=== PATIENT | male | born 1955 | race Caucasian/White ===

== ENCOUNTER 2019-10-14 14:09 | Outpatient (CLI) | payer MEDICARE, SELFPAY ==
--- NOTE | ~2019-10-14 | CT_ITS ---
EXAMINATION: CT abdomen pelvis w con EXAM DATE: 10/14/2019 15:16 INDICATION: Abdominal cramps, pain. TECHNIQUE: Spiral CT of the abdomen and pelvis was performed following intravenous injection of 100 m L Omnipaque 350. Axial, coronal and sagittal images were reviewed. The dose-length product (DLP) fo r this examination was 299.59 mGy-cm. The exposure was tailored according to patient size (auto mA e xposure control), and iterative reconstruction (ASIR) was used as additional dose reduction technique . There is no prior study for comparison. FINDINGS: The liver, spleen, adrenal glands and pancreas are unremarkable. Gallbladder is unremarkab le. No biliary obstruction. There is mild left hydronephrosis, but no nephrolithiasis or ureteral s tone identified. The prostate is unremarkable. The bladder is unremarkable. There is no retroperit howard or pelvic lymphadenopathy. There is mild to moderate scattered arteriosclerotic disease. The re is a right-sided scrotalith. The appendix is normal. The stomach and small bowel are unremarkable. There is expected amount of c olonic stool. No free intraperitoneal gas. The heart is normal in size. There are no pericardial or pleural effusions. The lung bases are unremarkable. There is hyperinflation. There are no osteob lastic or osteolytic lesions identified. Mild thoracolumbar scoliosis. IMPRESSION: 1. Mild left hydronephrosis, but without obstructing stone identified. Reviewed, dictated and finalized at location [facility]. [facility]
[2019-10-14 15:00] LABS: Blood Urea Nitrogen 14 mg/dL (8-26); Estimated Glomerular Filt Rate > 60
[2019-10-14 15:25] LABS: Basophils Percent Auto 0.4 % (0.2-1.2); Eosinophils Absolute Auto 0.1 K/mm3 (0-0.3); Eosinophils Percent Auto 1.6 % (0-4.4); Hematocrit 44.8 % (42.0-52.0); Hemoglobin 15.1 g/dL (14.0-18.0); Immature Granulocyte Absolute 0.03 K/mm3 (0.00-0.031); Immature Granulocyte Percent A 0.4 % (0-0.5); Lymphocytes Percent Auto 34.4 % (18.3-44.2); Mean Corpuscular HGB Conc 33.7 g/dl (32-36); Mean Corpuscular Hemoglobin 30.2 pg (26-34); Mean Corpuscular Volume 89.6 fl (80-100); Mean Platelet Volume 11.9 fl (7.4-10.4); Monocytes Absolute Auto 0.8 K/mm3 (0.1-0.6); Neutrophils Absolute Auto 3.6 K/mm3 (1.3-6.7); Neutrophils Percent Auto 52.2 % (45.5-73.1); Platelet Count Result 182 k/mm3 (150-375)
[2019-10-14 15:37] LABS: Alanine Aminotransferase 26 U/L (4-50); Albumin Level 4.2 g/dL (3.5-5.1); Alkaline Phosphatase 41 U/L (38-126); Aspartate Amino Transferase 19 U/L (17-59); Bilirubin,Total 1.2 mg/dL (0.2-1.3); Blood Urea Nitrogen 13 mg/dL (9-20); Calcium 9.4 mg/dL (8.4-10.2); Carbon Dioxide 30 mmol/L (22-30); Chloride 93 mmol/L (98-107); Estimated Glomerular Filt Rate > 60; Glucose 94 mg/dL (75-110); Sodium 134 mmol/L (137-145)
== END 2019-10-14 14:10 | disposition home or self-care (01) ==
LOC: ANHIMG 14:22
PROVIDERS: PCP Family Medicine; Visit Provider Nurse Practitioner Family
DX: R10.9 Unspecified abdominal pain (principal); N13.30 Unspecified hydronephrosis
CPT/HCPCS: 36415; 74177; 80053; 85025; Q9967

== ENCOUNTER 2019-11-07 10:46 | Outpatient (CLI) | payer MEDICARE, SELFPAY ==
--- NOTE | 2019-11-07 10:51 | ECG_ITS ---
Measurements Intervals [place] Rate: 52 P: 66 SD: 171 QRS: 6 QRSD: 111 T: 35 QT: 411 QTc: 383 Interpretive Statements SINUS BRADYCARDIA INTRAVENTRICULAR CONDUCTION DELAY BORDERLINE R WAVE PROGRESSION, ANTERIOR LEADS PEAKED T WAVES- CONSIDER HYPERKALEMIA OR ISCHEMIA BASELINE ARTIFACT- I, II, III, AVR, AVL, AVF ABNORMAL ECG Electronically Signed On 11-07-2019 11:20:48 CDT by Flavio Isabel D.O.
== END 2019-11-07 10:47 | disposition home or self-care (01) ==
PROVIDERS: PCP Family Medicine; Visit Provider Urology
DX: I10 Essential (primary) hypertension (principal); I45.9 Conduction disorder, unspecified
CPT/HCPCS: 93005

== ENCOUNTER 2019-11-10 01:34 | Day surgery (SDC) | payer MEDICARE, SELFPAY ==
[2019-11-04 09:30] VITALS: BMI 19.8
[2019-11-10] VITALS (8 sets, daily range): BP systolic 118–164; BP diastolic 66–84; PULSE 51–82; RESP 10–20; TEMP 36.7–37.5; O2SAT 99–100
--- NOTE | ~2019-11-10 | XR_ITS ---
EXAMINATION: XR retrograde pyelogram LT DATE: 11/10/2019 18:10 CDT INDICATION: Left hydronephrosis TECHNIQUE: 41 fluoroscopic images from a left retrograde pyelogram are submitted for review. 40 secon ds of fluoroscopy time. FINDINGS: There are small filling defect proximal aspect of the left ureter which is not persistent, likely iatrogenic gas. There is normal course and caliber of the left ureter. The left renal calyces are normally cupped. IMPRESSION: 1. Unremarkable left retrograde pyelogram.. Correlate with real time procedural findings for details . Reviewed, dictated and finalized at location A. IMPRESSION: 1. Unremarkable left retrograde pyelogram.. Correlate with real time procedura l findings for details.
--- NOTE | 2019-11-10 06:45 | WPDHPUPDATE1 ---
History and Physical Update Update Date/Time: 11/10/19 06:45 History and Physical has been reviewed, including an updated exam of the patient. There are NO changes in the patient's condition. Risks, benefits, and alternatives have been discussed and questions answered. Patient agrees to proceed with procedure.
[2019-11-10] MEDS: LACTATED RINGERS 1,000 ML 30 ML IV CONT ×2 (12:45→14:53)
--- NOTE | 2019-11-10 13:24 | WPDANESEPPF ---
Anes - Initial Pre Proc Eval Procedure: Operation Date: 11/10/19 14:15 Proposed Procedures p Right Epididymectomy - Dago Justice MD s Cystoscopy, Left Retrograde Pyelogram, Left Ureteroscopy - Dago Justice MD Date/Time: 11/10/19 13:24 Surgeon: Dago Justice MD Pre Op Diagnosis: right epididimitis, left hydronephrosis Patient Data Age: 64 Gender: M Height: 6 ft 1 in Weight: 70 kg Last Vital Signs Temp 37.5 C 11/10/19 12:54 Pulse 51 L 11/10/19 12:54 Resp 20 11/10/19 12:54 BP 118/68 11/10/19 12:54 Pulse Ox 99 11/10/19 12:54 Allergies Allergy/AdvReac Type Severity Reaction Status Date / Time nut - unspecified Allergy Severe Anaphylactic Verified 11/10/19 12:56 Shock Penicillins Allergy Unknown Rash Verified 11/10/19 12:56 Home Medications Medication Instructions Recorded Confirmed Type oxycodone 5 mg tablet 5 mg PO Q8H PRN #90 tablet 09/30/19 11/10/19 Rx acetaminophen-codeine 0.5 tablet PO Q4H PRN 11/04/19 11/10/19 History [Tylenol-Codeine #4] atenolol 100 mg PO HS 11/04/19 11/10/19 History cholecalciferol (vitamin D3) 125 mcg PO DAILY 11/04/19 11/10/19 History [Dialyvite Vitamin D] milk thistle 150 mg PO DAILY 11/04/19 11/10/19 History omega 0-ebe-bsc-fish oil [Fish Oil] 1 cap PO DAILY 11/04/19 11/10/19 History tamsulosin [Flomax] 0.4 mg PO HS 11/04/19 11/10/19 History epinephrine 0.3 mg/0.3 mL 0.3 ml SUB-Q ONCE #2 each 11/08/19 11/10/19 Rx injection, auto-injector Patient hx anesthesia problems: none Family hx anesthesia problems: none PMFSH Past Medical History Medical History Arthritis Chronic pain syndrome Family History Family History Other Family history of hypercholesterolemia Hypertension Social History Social History Smoking status: Never smoker Alcohol intake: never Gender identity (if verbalized by the patient): Male Anes - Eval Final PreProcedure Day of Procedure 11/10/19 13:24 Patient weight: normal Heart: regular rate and rhythm Lungs: clear to auscultation Airway: Mallampati scale class II Neurological: alert and oriented Last oral intake: >/= 8 hours ASA classification: III Emergent: no Anesthetic plan: proceed Anesthesia type and monitoring: general LMA and standard monitoring Informed Consent: The patient's anesthetic plan and its attendant risks and benefits were discussed with the patient/family/POA. Questions were solicited and answers provided to the satisfaction of the patient/family/POA.
[2019-11-10] MEDS: levoFLOXacin 500 MG/D5W 100 ML 500 MG/100 ML BAG 100 MG IVPB (13:47)
--- NOTE | 2019-11-10 15:02 | PM.PROC ---
Procedure Note - Detailed Date of procedure: 11/10/19 Pre-op diagnosis: right epididimitis, left hydronephrosis Post-op diagnosis: same Procedure performed: 1. Cystoscopy, left RPG, left ureteroscopy. 2. Right epididymectomy. Description of procedure: Patient is brought to the operative suite where he has prepped and draped in routine sterile fashion while in a dorsal lithotomy position after the uneventful induction of a general LMA anesthetic. I 1st performed cystoscopy with a 19 F rigid cystoscope. He has no urethral strictures and only moderate enlargement of his prostate without median lobe enlargement. The bladder mucosa is normal without hyperemia. There is no intravesical foreign body or neoplasm. He has a single orthotopic ureteral orifices with clear efflux bilaterally. An 8 F bulb tip catheter was used to obtain a left retrograde pyelogram. There is no points of obstruction filling defect or other identifiable pathology. I did place a 0.035 glidewire, dilated distal ureter with an 8 F 10 F dilator and performed flexible ureteroscopy with a 7.5 F scope. The collecting system ureteropelvic junction and ureter were endoscopically normal. I then turned attention to the epididymectomy. A short, approximately 1 cm, incision was made in the median raphae a the scrotum and dissection carried into the right tunica vaginalis. The testicle itself is visibly and palpably normal. Using electric cautery I excised the entire epididymis and transected the vas deferens. I over sewed the vas deferens with a Olena Vicryl. Hemostasis was obtained with electrocautery. The testicle was returned to its orthotopic position. The dartos muscle was closed with running 4 0 chromic and skin is likewise closed with a running 4 0 chromic. Blood loss was less than 10 cc. Final sponge and needle counts were correct. Patient tolerated the procedure well and was taken recovery room in good condition. Anesthesia: GLMA Surgeon: Dago Justice MD Estimated blood loss (mL): 10
== END 2019-11-10 16:48 | disposition home or self-care (01) ==
PROVIDERS: PCP Family Medicine; Visit Provider Urology
PROC: (CPT 52005; principal; 2019-11-10 14:15)
PROC: (CPT 52352; 2019-11-10 14:15)
DX: N45.1 Epididymitis (principal); N13.30 Unspecified hydronephrosis; R82.998 Other abnormal findings in urine; G89.4 Chronic pain syndrome; Z79.891 Long term (current) use of opiate analgesic; M19.90 Unspecified osteoarthritis, unspecified site
CPT/HCPCS: 52005; 54860; 74420; 88108; 88304; A9270; C1758; C1769; J1100; J1956; J2405; J2704; J3010; J7120; Q9966

== ENCOUNTER 2020-07-28 00:58 | Outpatient (CLI) | payer MEDICARE, SELFPAY ==
[2020-07-28 18:31] LABS: SARS-CoV-2 RNA PCR Negative
== END 2020-07-28 00:59 | disposition home or self-care (01) ==
LOC: ANHCOVIDDT 00:58
PROVIDERS: PCP Family Medicine; Visit Provider Internal Medicine Gastroenterology
DX: Z01.812 Encounter for preprocedural laboratory examination (principal); Z20.828 Contact with and (suspected) exposure to other viral communicable diseases
CPT/HCPCS: 87635; C9803; U0003

== ENCOUNTER 2020-08-01 01:48 | Day surgery (SDC) | payer MEDICARE, SELFPAY ==
[2020-07-24 10:48] VITALS: BMI 21.4
[2020-08-01 06:48] VITALS: BMI 21.3
[2020-08-01 06:49] VITALS: BP 146/61; PULSE 61; RESP 18; TEMP 36.9; O2SAT 97
[2020-08-01] MEDS: LACTATED RINGERS 1,000 ML 150 ML IV CONT (06:56)
--- NOTE | 2020-08-01 07:54 | WPDANESEPPF ---
Anes - Initial Pre Proc Eval Procedure: Operation Date: 08/01/20 08:00 Proposed Procedures p Screening Colonoscopy - Haris Garnica MD Date/Time: 08/01/20 07:54 Surgeon: Haris Garnica MD Pre Op Diagnosis: Hx Of Colon Polyps Patient Data Age: 65 Gender: M Height: 6 ft 1 in Weight: 73.3 kg Last Vital Signs Temp 98.4 F 08/01/20 06:49 Pulse 61 08/01/20 06:49 Resp 18 08/01/20 06:49 BP 146/61 H 08/01/20 06:49 Pulse Ox 97 08/01/20 06:49 Allergies Allergy/AdvReac Type Severity Reaction Status Date / Time nut - unspecified Allergy Severe Anaphylactic Verified 08/01/20 06:47 Shock Penicillins Allergy Unknown Rash Verified 08/01/20 06:47 Home Medications Medication Instructions Recorded Confirmed Type cholecalciferol (vitamin D3) 125 mcg PO DAILY 11/04/19 07/24/20 History [Dialyvite Vitamin D] milk thistle 1,000 mg PO DAILY 11/04/19 07/24/20 History omega 1-sbn-drc-fish oil [Fish Oil] 1 cap PO DAILY 11/04/19 07/24/20 History epinephrine 0.3 mg/0.3 mL 0.3 ml SUB-Q ONCE #2 each 11/08/19 07/24/20 Rx injection, auto-injector atenolol 100 mg tablet 100 mg PO HS #30 tablet 05/16/20 07/24/20 Rx diazepam 2 mg tablet 2 mg PO TID PRN #30 tablet 07/17/20 07/24/20 Rx tamsulosin 0.4 mg capsule 0.4 mg PO HS #90 cap 07/17/20 07/24/20 Rx acetaminophen 300 mg-codeine 60 mg 1 tablet PO Q8H #90 tablet 07/19/20 07/24/20 Rx tablet oxycodone 5 mg tablet 5 mg PO Q8H PRN #90 tablet 07/19/20 08/01/20 Rx tramadol 50 mg PO TID PRN 07/24/20 07/24/20 History Patient hx anesthesia problems: none Family hx anesthesia problems: none PMFSH Past Medical History Medical History (Updated 06/19/20 @ 09:40 by Donovan Sebastian MD) Arthritis BPH w/o urinary obs/LUTS Chronic pain syndrome Colon polyp Degenerative, intervertebral disc, cervical Essential (primary) hypertension Family History Family History Other Family history of hypercholesterolemia Hypertension Social History Social History Smoking packs per day: 1 Smoking cigarettes per day: 20.0 Years smoked: 15 Smoking pack-years: 15.00 Smoking status: Never smoker Alcohol intake: never Substance use: current Substance use type: marijuana Other substance usage details: USES DAILY TO HELP WITH PAIN Last use: 07/23/20 Living arrangements: with family Gender identity (if verbalized by the patient): Male Spiritual care concerns: No Anes - Eval Final PreProcedure Day of Procedure 08/01/20 07:54 Patient weight: normal Heart: regular rate and rhythm Lungs: clear to auscultation Airway: Mallampati scale class II Neurological: alert and oriented Last oral intake: >/= 8 hours ASA classification: III Emergent: no Anesthetic plan: proceed Anesthesia type and monitoring: general GIVS and standard monitoring Informed Consent: The patient's anesthetic plan and its attendant risks and benefits were discussed with the patient/family/POA. Questions were solicited and answers provided to the satisfaction of the patient/family/POA.
--- NOTE | 2020-08-01 07:58 | WPDGICN ---
Assessment and Plan Assessment and plan (1) History of colon polyps: Code(s): Z86.010 - Personal history of colonic polyps Status: Acute Assessment and Plan: Patient has a history of several adenomatous colon polyps removed from the colon in 2014. Plan is for surveillance colonoscopy at this time. GI Consult Note Consult date/time: 08/01/20 07:58 HPI: Shawn Mclean is a 65 year old male Seen in evaluation at the request of Dr. Donovan Sebastian. Patient has a history of colon polyps in 2014. Several tubular adenomatous poor colon polyps were removed at that time. Patient returns for surveillance colonoscopy at this time. His current weight appetite bowel movements are normal. He denies abdominal pain. He has had no blood in his stools. There is no family history of colon or rectal disease. Past medical history is significant for a neck injury. He has ongoing neck pain. Review of Systems Review of Systems: All systems reviewed & are unremarkable except as noted in HPI and below PMFSH Past Medical History Medical History (Updated 08/01/20 @ 08:00 by Haris Garnica MD) Arthritis BPH w/o urinary obs/LUTS Chronic pain syndrome Colon polyp Degenerative, intervertebral disc, cervical Essential (primary) hypertension Family History Family History Other Family history of hypercholesterolemia Hypertension Social History Social History Smoking packs per day: 1 Smoking cigarettes per day: 20.0 Years smoked: 15 Smoking pack-years: 15.00 Smoking status: Never smoker Alcohol intake: never Substance use: current Substance use type: marijuana Other substance usage details: USES DAILY TO HELP WITH PAIN Last use: 07/23/20 Living arrangements: with family Gender identity (if verbalized by the patient): Male Spiritual care concerns: No Meds Home Medications and Allergies Home Medications Medication Instructions Recorded Confirmed Type cholecalciferol (vitamin D3) 125 mcg PO DAILY 11/04/19 07/24/20 History [Dialyvite Vitamin D] milk thistle 1,000 mg PO DAILY 11/04/19 07/24/20 History omega 1-wfp-fpa-fish oil [Fish Oil] 1 cap PO DAILY 11/04/19 07/24/20 History epinephrine 0.3 mg/0.3 mL 0.3 ml SUB-Q ONCE #2 each 11/08/19 07/24/20 Rx injection, auto-injector atenolol 100 mg tablet 100 mg PO HS #30 tablet 05/16/20 07/24/20 Rx diazepam 2 mg tablet 2 mg PO TID PRN #30 tablet 07/17/20 07/24/20 Rx tamsulosin 0.4 mg capsule 0.4 mg PO HS #90 cap 07/17/20 07/24/20 Rx acetaminophen 300 mg-codeine 60 mg 1 tablet PO Q8H #90 tablet 07/19/20 07/24/20 Rx tablet oxycodone 5 mg tablet 5 mg PO Q8H PRN #90 tablet 07/19/20 08/01/20 Rx tramadol 50 mg PO TID PRN 07/24/20 07/24/20 History Allergies Allergy/AdvReac Type Severity Reaction Status Date / Time nut - unspecified Allergy Severe Anaphylactic Verified 08/01/20 06:47 Shock Penicillins Allergy Unknown Rash Verified 08/01/20 06:47 Vital Signs Vital Signs - 24 hr 08/01/20 06:49 Temperature 98.4 F Pulse Rate 61 Respiratory Rate 18 Blood Pressure 146/61 H Pulse Oximetry 97 Exam Narrative: Exam Narrative: Physical exam reveals patient to be alert. Vital signs stable. HEENT exam unremarkable. Lungs are clear to auscultation and percussion. Heart is without murmur or extra sounds. Abdominal exam bowel sounds are present soft nontender with no organomegaly. Digital external rectal exam is normal.
[2020-08-01 08:21] VITALS: BP 109/67; PULSE 63; RESP 16; O2SAT 100
[2020-08-01 08:31] VITALS: BP 116/66; PULSE 65; RESP 15; O2SAT 100
[2020-08-01 08:41] VITALS: BP 141/65; PULSE 69; RESP 22; O2SAT 100
== END 2020-08-01 08:51 | disposition home or self-care (01) ==
PROVIDERS: PCP Family Medicine; Visit Provider Internal Medicine Gastroenterology
PROC: 0DJD8ZZ Inspection of Lower Intestinal Tract, Via Natural or Artificial Opening Endoscopic (ICD-10-PCS; CPT 45378; principal; 2020-08-01 08:00)
DX: Z12.11 Encounter for screening for malignant neoplasm of colon (principal); K57.30 Diverticulosis of large intestine without perforation or abscess without bleeding; K64.8 Other hemorrhoids; Z86.010 Personal history of colon polyps; I10 Essential (primary) hypertension; N40.0 Benign prostatic hyperplasia without lower urinary tract symptoms; G89.4 Chronic pain syndrome; M47.812 Spondylosis without myelopathy or radiculopathy, cervical region; F12.90 Cannabis use, unspecified, uncomplicated; Z79.891 Long term (current) use of opiate analgesic
CPT/HCPCS: G0105; J2704; J7120

== ENCOUNTER 2024-03-11 08:51 | Outpatient (CLI) | payer MEDICARE, SELFPAY ==
--- NOTE | 2024-03-11 09:00 | ECG_ITS ---
Test Date: 2024-03-11 09:14:11 Measurements Intervals [place] Rate: 49 P: 44 MN: 181 QRS: 12 QRSD: 119 T: 35 QT: 432 QTc: 392 Interpretive Statements SINUS BRADYCARDIA INTRAVENTRICULAR CONDUCTION DELAY BORDERLINE R WAVE PROGRESSION, ANTERIOR LEADS TALL T-WAVES, SUGGESTS HYPERKALEMIA BASELINE ARTIFACT- I, II, III, AVR, AVL, AVF, V1-V6 ABNORMAL ECG No previous ECG available for comparison Electronically Signed On 03-11-2024 12:35:41 CDT by Flavio Isabel D.O.
== END 2024-03-11 08:52 | disposition home or self-care (01) ==
LOC: ANHSURGERY 08:55
PROVIDERS: PCP Family Medicine; Visit Provider Surgery
DX: K40.90 Unilateral inguinal hernia, without obstruction or gangrene, not specified as recurrent (principal); I10 Essential (primary) hypertension; Z01.818 Encounter for other preprocedural examination
CPT/HCPCS: 36415; 86850; 86900; 86901; 93005

== ENCOUNTER 2024-03-15 02:08 | Day surgery (SDC) | payer MEDICARE, SELFPAY ==
[2024-03-10 13:02] VITALS: BMI 21.3
--- NOTE | 2024-03-10 13:44 | PC.NURSE ---
Report to the Outpatient Waiting Room, entrance under the green pavilion located off [facility], at time ____06:00am___ on date ___03/15/24____. Planned Procedure Time: ___07:30am. Time changes happen often and if your time is changed the preop area will call you the afternoon before. - You and your visitor will be asked to self-screen and do not enter if you have any COVID symptoms. - A mask is optional within the hospital at this time. Patients may have clear liquids (water, carbonated beverages, clear teas, apple juice) until 3 hours prior to surgery with a maximum of 20 ounces. - No food from midnight until time of surgery Take the following medications with a SIP of water the morning of surgery: Duloxetine & Lyrica. Hydrocodone as needed for pain DO NOT STOP ANY OF YOUR OTHER PRESCRIPTION MEDICATIONS PRIOR TO SURGERY ?EXCEPT THE FOLLOWING Medications to discontinue per physician Hold all vitamins and supplements 3 days preop per Anesthesia Date to take last dose__03/11/24 Please no make-up, nail vietnamese, hairspray, perfume, deodorant, or body powder the day of surgery. No jewelry (including any body piercings) or valuables the day of surgery, leave them at home. Please take a shower or bath the night before, or the morning of, surgery with an antibacterial soap. Wear comfortable, loose fitting clothing. - Jewelry must be removed prior to entering the operating room. Rings and piercings that are not removed may be cut off. - The hospital will not accept responsibility for valuables. - Please leave all valuables, including medications, at home the day of surgery. If you are going home after surgery, a licensed seasonal delivery driver must drive you home. - NO public transportation without another adult if you receive anesthesia. - We recommend that an adult stay with you for 24 hours following discharge. - We also recommend that you do not drive, make important decision, drink alcoholic beverages, or take any drugs that were not prescribed by your health care provider for at least 24 hours after your discharge time. Follow any additional instructions given to you from your surgeon. If you or anyone in your household have experienced Covid symptoms in the past week, please notify your surgeon or the nurse liaison at the phone number below for possible testing. Telephone instructions given to __Patient and asked if any additional questions and then verbalized understanding. Patient advised to call surgeon office or pre surgery nurse liaison [phone] if any additional questions.
[2024-03-15] VITALS (13 sets, daily range): BP systolic 95–130; BP diastolic 47–86; PULSE 50–76; RESP 16–19; TEMP 36.4–36.9; O2SAT 98–100
[2024-03-15] MEDS: ACETAMINOPHEN 500 MG TABLET 1000 MG PO (07:05)
[2024-03-15] MEDS: LACTATED RINGERS 1,000 ML 30 ML IV CONT ×3 (07:05→10:50)
--- NOTE | 2024-03-15 07:11 | WPDANESEPPF ---
Anes - Initial Pre Proc Eval Procedure: Operation Date: 03/15/24 07:30 Proposed Procedures p Laparoscopic Left Inguinal Hernia Repair with Mesh, Davinci Assisted - Gregorio Batres DO Date/Time: 03/15/24 07:11 Surgeon: Gregorio Batres DO Pre Op Diagnosis: Left Inguinal Hernia Patient Data Age: 69 Gender: M Height: 1.85 m Weight: 64.3 kg Last Vital Signs Temp 98.4 F 03/15/24 06:08 Pulse 56 L 03/15/24 06:08 Resp 18 03/15/24 06:08 BP 108/86 03/15/24 06:08 Pulse Ox 98 03/15/24 06:08 O2 Del Method Room Air 03/15/24 06:08 Allergies Allergy/AdvReac Type Severity Reaction Status Date / Time Penicillins Allergy Severe throat Verified 03/15/24 06:02 swelling, rash walnut Allergy Severe Anaphylactic Verified 03/15/24 06:03 Shock shrimp Allergy Unknown itching, Verified 03/15/24 06:02 swelling Home Medications Medication Instructions Recorded Confirmed Type milk thistle 150 mg capsule 1,000 mg PO DAILY 11/04/19 03/15/24 History epinephrine 0.3 mg/0.3 mL 0.3 ml subcut ONCE #3 ea 04/24/21 03/15/24 Rx injection, auto-injector tamsulosin 0.4 mg capsule (Flomax) 0.4 mg PO HS #90 caps 06/27/23 03/15/24 Rx atenolol 100 mg tablet 100 mg PO HS #90 tabs 10/12/23 03/15/24 Rx duloxetine 60 mg capsule,delayed 60 mg PO DAILY #90 caps 10/12/23 03/15/24 Rx release zaleplon 10 mg capsule 10 mg PO QHS PRN sleep #90 caps 10/12/23 03/15/24 Rx oxycodone 5 mg tablet 5 mg PO Q6H PRN pain #240 tabs 02/29/24 03/15/24 Rx naloxone 4 mg/actuation nasal 1 spray intranasal Q2-3M PRN 03/02/24 03/15/24 Rx spray (Narcan) opioid overdose #2 ea cranberry extract 500 mg capsule 500 mg PO DAILY 03/10/24 03/15/24 History (Cranberry Concentrate) pregabalin 50 mg capsule (Lyrica) 50 mg PO BID PRN Pain 03/10/24 03/15/24 History Patient hx anesthesia problems: none Family hx anesthesia problems: none Results Review: All pre-operative results and documents have been reviewed as part of the pre-operative evaluation. FOR[facility]LY [facility] Past Medical History Medical History Abdominal pain Anxiety Arthritis BPH w/o urinary obs/LUTS Chronic pain syndrome Colon polyp Degenerative, intervertebral disc, cervical Elevated lipids Erectile dysfunction Essential (primary) hypertension History of colon polyps Insomnia Knee osteoarthritis Left inguinal hernia Screening for lipid disorders Surgical History Surgical History H/O knee surgery (~1984) H/O neck surgery several Neuro neck surgeries 2011 &2014 History of knee replacement (~2006) Hx of shoulder replacement (~2013) Right shoulder Family History Family History Mother Lung cancer Father Heart disease Hyperlipidemia Sibling No problems noted. Other Family history of hypercholesterolemia Hypertension Social History Social History Smoking packs per day: 1 Smoking cigarettes per day: 20.0 Years smoked: 15 Smoking pack-years: 15.00 Smoking status: Former smoker Tobacco type: cigarettes Second hand tobacco smoke exposure: No Smoking end date: 02/28/87 Alcohol intake: never Substance use: former Substance use type: marijuana Other substance usage details: USES DAILY TO HELP WITH PAIN-CBD Last use: 07/23/20 Lack of Transportation: No Lack of Food: Never True Current Housing: I Have Housing Concerned About Future Housing: No Difficulty Paying Gas/Electric Bills: No Difficulty Paying for Meds: No Currently Unemployed: No Education: High School Diploma/GED Difficulty w/ Childcare or Family Care: No Living arrangements: with family Occupation/Education: retired Additional occupation/education comments:
[2024-03-15] MEDS: KETOROLAC 15 MG/ML VIAL (*BKC) IV PUSH (07:12)
--- NOTE | 2024-03-15 07:17 | WPDHPUPDATE1 ---
History and Physical Update Update Date/Time: 03/15/24 07:17 History and Physical has been reviewed, including an updated exam of the patient. There are NO changes in the patient's condition. Risks, benefits, and alternatives have been discussed and questions answered. Patient agrees to proceed with procedure.
[2024-03-15] MEDS: ceFAZolin 2 GM/D5W 50 ML 2 GM/50 ML BAG IVPB (07:26)
[2024-03-15] MEDS: BUPIVACAINE/EPINEPHRINE 0.5% 50 ML VIAL 30 ML INFILTRATE (07:45)
--- NOTE | 2024-03-15 08:39 | W.PM.PROC2 ---
Procedure Note - Detailed Date of Procedure 03/15/24 Pre-op Diagnosis Left Inguinal Hernia Post-op Diagnosis Same (Indirect LIH) Procedure Performed Laparoscopic left inguinal hernia repair with mesh, da Gabi assisted Surgeon Gregorio Batres, Anesthesia General and Local (0.5% bupivacaine with epinephrine) Indications This is a 69-year-old man who presented with a left groin bulge and discomfort that he noticed about 1 year ago. Symptoms have become more prominent recently and this is limiting his everyday activity. He was found to have a reducible left inguinal hernia on exam. Discussions were made with the patient about treatment options and decision was made to proceed with robotic assisted laparoscopic left inguinal hernia repair with mesh. Findings Laparoscopic left inguinal hernia repair was performed. The patient was found to have an indirect left inguinal hernia. There was no sign of a right inguinal hernia. A robotic transabdominal preperitoneal approach was used for left inguinal hernia repair. Once a wide enough preperitoneal pocket was created and the hernia sac was reduced, I then placed a large left 3DMax mid mesh overlying the entire left myopectineal orifice. No specimens were obtained for pathology. Description of Procedure Procedure as well as risks, benefits, and alternatives were discussed with the patient. Written consent was obtained and placed in chart prior to procedure. Patient was brought back to surgical suite. He was placed supine on operating table. Time-out was done to confirm patient and procedure. He was then intubated by Anesthesia Department. His abdomen was prepped and draped in sterile fashion using chlorhexidine prep. 0.5% bupivacaine with epinephrine was infiltrated at each location for incision. A 12 millimeter transverse incision was made just superior to the umbilicus using a 15 blade scalpel. Blunt dissection was carried out down to the linea alba. A vertical incision was made at the linea alba using a 15 blade scalpel. The peritoneum was then bluntly entered. A 12 millimeter trocar was inserted and carbon dioxide insufflation was used to create a pneumoperitoneum. A camera was inserted and the abdominal cavity was inspected. The patient was placed in slight Trendelenburg position. An 8 millimeter incision was made on the right lateral abdomen and an 8 millimeter trocar was inserted under direct visualization. Another 8 millimeter incision was made in the left lateral abdomen and an 8 millimeter trocar was inserted under direct visualization. The robotic arms were brought up to the patient's bedside and secured to the ports. The camera and instruments were inserted. I then moved over to the robotic console and took control of the camera and instruments. After careful inspection of the abdominal cavity, I began scoring the peritoneum along the left lower quadrant using scissors with electrocautery. The preperitoneal plane was entered and this was carefully dissected caudally along the inferior epigastric vessels. Careful dissection with scissors with electrocautery and blunt dissection was used to continue this dissection. I dissected far enough laterally to allow for mesh placement, and also dissected medially to identify the pubic arch and Damion's ligament. The hernia sac was identified and carefully dissected posteriorly. The cord contents were also identified and the peritoneum was carefully dissected far enough posteriorly to allow for mesh placement. Once an adequate pocket was created, I then placed the mesh within the preperitoneal pocket and carefully unfolded it. The mesh was centered on the hernia defect with adequate overlap circumferentially. The inferior edge of the mesh was inspected to ensure that it was far enough away from the peritoneal edge. The mesh appeared in proper position overlying the entire myopectineal orifice. The mesh was secured using 3-0 Vicryl simple interrupted
[2024-03-15] MEDS: fentaNYL CITRATE INJ (*CRX) 100 MCG/2 ML VIAL 25 MCG IV PUSH ×4 (09:01→09:25)
[2024-03-15] MEDS: oxyCODONE HCL (*CRX) 5 MG TAB IR PO (09:56)
--- NOTE | 2024-03-15 11:59 | SUR.PHASEII ---
Patient ambulated to the bathroom x2 in attempt to urinate. Patient was unable to urinate both times. Dr. Batres notified. Stated to give the patient more time.
== END 2024-03-15 13:15 | disposition home or self-care (01) ==
PROVIDERS: PCP Family Medicine; Visit Provider Surgery
PROC: 8E0Y4CZ Robotic Assisted Procedure of Lower Extremity, Percutaneous Endoscopic Approach (ICD-10-PCS; CPT 49650; principal; 2024-03-15 07:30)
DX: K40.90 Unilateral inguinal hernia, without obstruction or gangrene, not specified as recurrent (principal); I10 Essential (primary) hypertension; E78.5 Hyperlipidemia, unspecified; G89.4 Chronic pain syndrome; N40.0 Benign prostatic hyperplasia without lower urinary tract symptoms; F41.9 Anxiety disorder, unspecified; F12.90 Cannabis use, unspecified, uncomplicated; Z87.891 Personal history of nicotine dependence; Z79.891 Long term (current) use of opiate analgesic
CPT/HCPCS: 49650; S2900; 36415; 86850; 86900; 86901; 93005; A9270; C1781; J0690; J1100; J1170; J1885; J2250; J2405; J2704; J3010; J3410; J7030; J7120